=== PATIENT | male | born 1945 | race Caucasian/White ===

== ENCOUNTER → 2022-09-23 | Outpatient (CLI) | payer OTHER, SELFPAY ==
[2022-09-23 16:48] LABS: Absolute Lymphocyte Count 1.85 X10^3/uL (0.83-4.51); Absolute Neutrophil Count 3.7 X10^3/uL (2.0-7.7); Basophil# 0.05 X10^3/uL; Basophil% 0.8 % (0-1); Eosinophil# 0.23 X10^3/uL; Eosinophils% 3.6 % (0-5); Hematocrit 37.8 % (40-54); Hemoglobin 11.3 g/dL (13.0-16.5); Lymphocyte # 1.85 X10^3/ul (0.83-4.51); Mean Corp Hgb Conc 29.9 g/dL (32-36); Mean Corpuscular Hgb 27.5 pg (27.0-32.0); Mean Platelet Vol. 10.1 fl (6.2-12.0); Monocyte# 0.55 X10^3/uL; Monocyte% 8.6 % (0-10); NRBC Flagged by Analyzer 0 % (0-5); Neutrophil # 3.69 X10^3/uL (2.7-7.7); Neutrophil % 57.7 % (47-70); Platelet Count 171 K/mm3 (150-450); RBC Distribution Width SD 56.3 fl (35.1-43.9); Red Blood Count 4.11 M/mm3 (4.6-6.2); White Blood Count 6.4 K/mm3 (4.4-11.0)
[2022-09-23 16:57] LABS: International Normalized Ratio 1.2; Prothrombin Time (Protime)PT. 14.8 SECONDS (11.7-14.9)
[2022-09-23 17:47] LABS: HIV - WCH Non-Reactive (Nonreactive)
[2022-09-23 17:51] LABS: Erythrocyte Sedimentation Rate 21 mm/hr (0-20)
[2022-09-23 17:58] LABS: ALB/GLOB Ratio 0.7 RATIO (0.9-2.4); AST(SGOT) 54 U/L (15-37); Alanine Aminotransfer ALT/SGPT 74 U/L (16-61); Albumin, Serum 3.6 g/dL (3.2-5.0); Alkaline Phosphatase 346 U/L (45-117); Anion Gap 7 (5-15); BUN 50 mg/dL (7-18); BUN/Creat Ratio 43.5 RATIO (10-20); CRP < 2.90 mg/L (0.0-3.0); Calcium,Total 9.6 mg/dL (8.5-10.1); Chloride 99 mmol/L (98-107); Creatinine, Serum 1.15 mg/dL (0.70-1.30); EST Glomerular Filtration Rate 66 mL/min (>60); Est Glom Filt Rate - Afr Amer 79 mL/min (>60); Ferritin 52 ng/mL (26-388); Globulin 5.3 g/dL (2.2-4.2); Glucose 101 mg/dL (74-106); LDH 177 U/L (87-241); Potassium 3.8 mmol/L (3.5-5.1); Protein, Total 8.9 g/dL (6.4-8.2); Sodium Level 138 mmol/L (136-145)
[2022-09-23 20:30] LABS: Hemoglobin A1c 5.9 % (3.8-5.6)
[2022-09-25 16:09] LABS: Anti-Centromere B Ab <0.2 AI (0.0-0.9); Anti-Chromatin <0.2 AI (0.0-0.9); Anti-Jo <0.2 AI (0.0-0.9); Anti-Mitochondrial AB <20.0 Units (0.0-20.0); Anti-Scleroderma-70 AB <0.2 AI (0.0-0.9); Anti-dsDNA Ab 1 IU/mL (0-9); RNP Ab 0.2 AI (0.0-0.9); SJOGREN'S Anti-SS-A test < 0.2 AI (0.0-0.9); SJOGREN'S Anti-SS-B test < 0.2 AI (0.0-0.9); Smith Ab <0.2 AI (0.0-0.9)
[2022-09-26 08:12] LABS: AFP, Tumor Marker 1.9 ng/mL (0.0-8.4); Angiotensin Convert Enzyme 68 U/L (14-82); Anti-Smooth Muscle ABS 17 Units (0-19); Ceruloplasmin 42.1 mg/dL (16.0-31.0); Copper, Serum or Plasma 181 ug/dL (69-132); Cytoplasmic Ab (C-ANCA) <1:20 titer (Neg:<1:20); HEPATITIS B SURFACE AG Negative (Negative); Haptoglobin 173 mg/dL (34-355); Hep C Antibodies Non Reactive (Non Reactive); Hepatitis A IgM Antibody Negative (Negative); Hepatitis B Core AB IgM Negative (Negative); Perinuclear Ab (P-ANCA) <1:20 titer (Neg:<1:20)
== END | disposition home or self-care (01) ==
PROVIDERS: Referring Provider Internal Medicine Gastroenterology; Visit Provider Internal Medicine Gastroenterology
DX: K74.60 Unspecified cirrhosis of liver (principal); R18.8 Other ascites
CPT/HCPCS: 36415; 80053; 80074; 82105; 82140; 82164; 82390; 82525; 82728; 83010; 83036; 83516; 83615; 85025; 85610; 85652; 86140; 86225; 86235; 86256; 86703

== ENCOUNTER → 2022-09-30 | Outpatient (CLI) | payer OTHER, SELFPAY ==
--- NOTE | 2022-09-30 12:04 | CT_ITS ---
EXAM: CT ABDOMEN AND PELVIS WITHOUT AND WITH INTRAVENOUS CONTRAST CLINICAL INDICATION: Triple phase liver. Cirrhosis. Alcohol abuse. TECHNIQUE: Helically acquired images were obtained of the abdomen and pelvis without and with intravenous contrast. This CT exam was performed using one or more of the following dose reduction techniques: automated exposure control, adjustment of the mA and/or kV according to patient size, and/or use of iterative reconstruction technique. CONTRAST: IV 100mL Isovue-300 RADIATION DOSE: CTDIvol = 10.84 mGy, DLP = 1170.83 mGy-cm COMPARISON: No relevant prior studies available. FINDINGS: LOWER THORAX: Mild left posterior pleural fluid. Small hiatal hernia. Lung bases are clear. No cardiomegaly. No significant pericardial effusion. ABDOMEN: LIVER: Hepatomegaly measuring 20.3 cm long. GALLBLADDER AND BILE DUCTS: Unremarkable. No calcified gallstones. No gallbladder distention or wall edema. No intra- or extrahepatic biliary ductal dilation. PANCREAS: Unremarkable. No focal cystic or solid mass. SPLEEN: Unremarkable. Normal size without focal cystic or solid mass. ADRENALS: Unremarkable. No nodules. KIDNEYS AND URETERS: Unremarkable. Normal renal size and position. No hydronephrosis. STOMACH AND BOWEL: Unremarkable. No stomach or bowel distention. No focal inflammatory change. PELVIS: APPENDIX: Normal. BLADDER: Unremarkable. REPRODUCTIVE: Unremarkable as visualized. No mass. ABDOMEN and PELVIS: INTRAPERITONEAL SPACE: Mild ascites in the upper paracolic gutters and overlying the liver and spleen. No free air. BONES/JOINTS: Moderate pronounced disc space height narrowing at L4-L5 and L5-S1 disc space levels with degenerative vacuum phenomenon. No lytic or blastic lesions. SOFT TISSUES: Unremarkable. No discrete abdominal or pelvic wall hernia. VASCULATURE: Prominent calcified plaque at the origin of the superior mesenteric artery making it difficult to assess the presence or absence of stenosis. No significant stenosis of the celiac artery origin despite the presence of calcified plaque. Moderate calcified plaques along the infrarenal abdominal aorta down to the iliac arteries. Abdominal aorta is non-dilated. Normal contrast enhancement of the main portal vein and branches. No suspicious portal venous hypertension. No enhancing varices in the nessa hepatis, stomach and distal esophagus. LYMPH NODES: Unremarkable. No enlarged lymph nodes. CT/CT Abd/Pelvis W/WO Contrast IMPRESSION: 1. Mild hepatomegaly and mild ascites in the upper paracolic gutters and overlying the liver surface. 2. No CT evidence of pulmonary venous hypertension or varices around the nessa hepatis, stomach and esophagus. 3. Mild left posterior pleural fluid. 4. No acute abnormality in the abdomen and pelvis. Electronically Signed: Danny Bob MD at 15:45 EDT ,
== END | disposition home or self-care (01) ==
PROVIDERS: Referring Provider Internal Medicine Gastroenterology; Visit Provider Internal Medicine Gastroenterology
DX: K74.60 Unspecified cirrhosis of liver (principal); R18.8 Other ascites
CPT/HCPCS: 74178; Q9967

== ENCOUNTER → 2023-01-14 | Outpatient (CLI) | payer OTHER, SELFPAY ==
--- NOTE | 2023-01-14 09:27 | US_ITS ---
STUDY: ABDOMINAL ULTRASOUND -4 quadrants. REASON FOR VISIT: Male, 77 years old ASCITES TECHNIQUE: Ultrasound evaluation of the 4 quadrants was performed with real-time and static irene-scale imaging. TECHNICAL QUALITY: Adequate. COMPARISON: None. FINDINGS: The 4 quadrants was examined with ultrasound. No significant amount of ascites is seen. US/Abdomen Limited IMPRESSION: No significant amount of ascites is seen. The paracentesis was not performed. Electronically Signed: Brian Bain MD at 15:44 EDT ,
== END | disposition home or self-care (01) ==
PROVIDERS: Referring Provider Internal Medicine Gastroenterology; Visit Provider Internal Medicine Gastroenterology
DX: R18.8 Other ascites (principal)
CPT/HCPCS: 76705; A4216

== ENCOUNTER → 2023-08-12 | Outpatient (CLI) | payer OTHER, SELFPAY ==
[2023-08-12 15:24] LABS: Absolute Lymphocyte Count 1.55 X10^3/uL (0.83-4.51); Absolute Neutrophil Count 3.2 X10^3/uL (2.0-7.7); Basophil# 0.06 X10^3/uL; Eosinophil# 0.37 X10^3/uL; Eosinophils% 6.4 % (0-5); Hematocrit 41.4 % (40-54); Hemoglobin 13.4 g/dL (13.0-16.5); Lymphocyte # 1.55 X10^3/ul (0.83-4.51); Lymphocyte % 26.9 % (19-41); Mean Corp Hgb Conc 32.4 g/dL (32-36); Mean Corpuscular Hgb 31.1 pg (27.0-32.0); Mean Corpuscular Volume 96.1 fL (80-94); Mean Platelet Vol. 10.2 fl (6.2-12.0); Monocyte# 0.55 X10^3/uL; Monocyte% 9.5 % (0-10); NRBC Flagged by Analyzer 0 % (0-5); Neutrophil # 3.22 X10^3/uL (2.7-7.7); Platelet Count 125 K/mm3 (150-450); RBC Distribution Width CV 14.4 % (11.6-14.6); RBC Distribution Width SD 50.5 fl (35.1-43.9); Red Blood Count 4.31 M/mm3 (4.6-6.2); White Blood Count 5.8 K/mm3 (4.4-11.0)
[2023-08-12 15:41] LABS: International Normalized Ratio 1.2; Prothrombin Time (Protime)PT. 15.3 SECONDS (11.7-14.9)
[2023-08-12 16:06] LABS: ALB/GLOB Ratio 0.8 RATIO (0.9-2.4); AST(SGOT) 43 U/L (15-37); Alanine Aminotransfer ALT/SGPT 54 U/L (16-61); Albumin, Serum 3.6 g/dL (3.2-5.0); Alkaline Phosphatase 237 U/L (45-117); Anion Gap 3 (5-15); BUN 37 mg/dL (7-18); BUN/Creat Ratio 30.1 RATIO (10-20); Calcium,Total 9.1 mg/dL (8.5-10.1); Chloride 99 mmol/L (98-107); Cholesterol 104 mg/dL (200); Creatinine, Serum 1.23 mg/dL (0.70-1.30); EST Glomerular Filtration Rate 61 mL/min (>60); Est Glom Filt Rate - Afr Amer 73 mL/min (>60); Ferritin 144 ng/mL (26-388); Globulin 4.6 g/dL (2.2-4.2); Glucose 89 mg/dL (74-106); High Density Lipoprotein 56 mg/dL; Iron 60 ug/dL (65-175); Iron Binding Capacity,Total 398 ug/dL (250-450); PERCENT IRON SATURATION 15.1 % (15.0-55.0); Protein, Total 8.2 g/dL (6.4-8.2); Sodium Level 134 mmol/L (136-145); Triglycerides 88 mg/dL; Very Low Density Lipoprotein 18 mg/dL (5-40)
[2023-08-12 16:15] LABS: Hemoglobin A1c 5.9 % (3.8-5.6)
[2023-08-14 04:07] LABS: AFP, Tumor Marker 1.9 ng/mL (0.0-8.4)
== END | disposition home or self-care (01) ==
LOC: LAB 14:36
PROVIDERS: Referring Provider Internal Medicine; Visit Provider Internal Medicine
DX: K74.60 Unspecified cirrhosis of liver (principal); R18.8 Other ascites
CPT/HCPCS: 36415; 80053; 80061; 82105; 82728; 83036; 83540; 83550; 85025; 85610; 86140

== ENCOUNTER 2023-09-08 12:40 | Day surgery (SDC) | payer OTHER, SELFPAY ==
[2023-09-08] VITALS (8 sets, daily range): BP systolic 88–139; BP diastolic 58–94; PULSE 71–82; RESP 14–16; TEMP 36.1–36.9; O2SAT 94–100; BMI 23.3
--- NOTE | 2023-09-08 | COLBX_PTH ---
PATIENT: CJ MOSQUERA LOC: EN U#:[id number] AGE/SX: 78/M ROOM: RE09/08/[address]: Dr. Kavon Madison DO : 1945 BED: DIS: 09/08/2023 SPEC #: [id number] RECD: 09/08/23 16:06 STATUS: BHASKAR AMIRA #: [id number] SULEIMAN: 09/08/23 00:[address]: Kavon Madison DEPT: SURGICAL PATHOLOGY RECD BY: Shweta Jeffrey ENTERED: 09/09/23 07:39 SP TYPE: COLON BX OTHR DR: [facility] Tissues: A - Gastric mucous membrane B - Sigmoid colon biopsy Procedures: Surgery Specimen Level IV HEADER OPERATION: Colonoscopy, EGD, biopsy PRE-OP DIAGNOSIS: Cirrhosis of liver with ascites TISSUE SUBMITTED: A- Gastric body biopsy, B- Sigmoid colon polyp biopsy MICROSCOPIC DIAGNOSIS A. Gastric body, biopsy: Mild gastritis. See microscopic description and comment. B. Sigmoid colon polyp, biopsy: Tubular adenoma. /mr 09/10/23 COMMENT A. The results of immunohistochemistry for Helicobacter pylori will be reported separately ([id number]). MICROSCOPIC DESCRIPTION Slides are reviewed. A. The specimen shows fragments of gastric mucosa with chronic inflammatory cell infiltrates in the lamina propria consisting of lymphocytes and plasma cells, consistent with mild chronic gastritis. GROSS DESCRIPTION A. Received in fixative is one container labeled with the patient's name and designated Gastric body biopsy. The specimen consists of two irregular fragments of light lutz soft tissue that in aggregate measure 0.6 x 0.5 x 0.2 cm. The specimen is totally submitted in one cassette. B. Received in fixative is one container labeled with the patient's name and designated Sigmoid colon polyp biopsy. The specimen consists of one irregular fragment of light lutz soft tissue that measures 0.5 x 0.5 x 0.2 cm. The specimen is totally submitted in one cassette. mr 09/09/23 TC:1 CPT:17514t6
--- NOTE | 2023-09-08 12:30 | IMM_PTH ---
PATIENT: CJ MOSQUERA LOC: EN U#:[id number] AGE/SX: 78/M ROOM: RE09/08/[address]: Dr. Kavon Madison DO : 1945 BED: DIS: 09/08/2023 SPEC #: [id number] RECD: 09/09/23 08:29 STATUS: BHASKAR REKole #: [id number] SULEIMAN: 09/08/23 12:[address]: Kavon Madison DEPT: IMMUNOHISTOCHEMISTRY RECD BY: Anshul Liu ENTERED: 09/09/23 08:33 SP TYPE: IMMUNO OTHR DR: [facility] Tissues: A - Gastric mucous membrane Procedures: H Pylori (initial) PHYSICIAN & INSTITUTION [place] [address] SPECIMEN INFORMATION: Tissue Source: A- Gastric body biopsy Clinical Info: Cirrohiss of liver with ascites Specimen Number: [id number] CPT code: 65163 METHODOLOGY: Deparaffinized sections of prefer/formalin-fixed tissue or PAP/DQ stained slides are incubated with monoclonal/polyclonal antibodies/oligonucleotide probes. Localization is made via biotin free immunoperoxidase method. Appropriate controls are performed and reacted as expected. Results on target cell population are indicated in the following table: RESULTS: ANTIBODY / CLONE RESULT Block A H Pylori (polyclonal) negative These tests were developed and their performance characteristics determined by [facility]. They may not have been cleared or approved by the U.S. Food and Drug Administration. The FDA has determined that such clearance or approval is not necessary. The above immunohistochemical/dualISH markers are ordered and reviewed by the Pathologist. INTERPRETATION: A. Gastric body, biopsy: Negative for Helicobacter pylori organisms. PRERNA/ 09/10/23
--- NOTE | 2023-09-08 13:17 | HP.PCM_ITS ---
History and Physical Date of Admission: 09/08/23 CJ MOSQUERA, is a 77 M who presents to the office today for follow up. [facility] with paracentesis (negative for malignancy) to address ascites and diverticulitis; history of dysphagia which neurology managed and is improved. History of renal cancer 2021; declined nephrectomy and discussed oncology options. [facility] hospitalization 04.26.22-05.07.22 where he was treated for alcohol dependence, alcoholic hepatic cirrhosis, iron deficiency, esophagitis, chronic gastric and duodenal ulcer, pneumonia, sepsis, hypovolemic shock, CKD Stage III, renal cancer, heart failure, long-term use of ATB. US RUQ and elastography 05.01.22 gallbladder moderately distended with diffuse wall thickening and mild pericholecystic fluid with gallbladder sludge and small polyps; liver mildly coarsened echotexture with mildly increased echogenicity without mass stiffness 1.59m/s (normal); trace abdominal ascites (s/p paracentesis); main portal vein mildly dilated 14mm, patent with antegrade flow. [facility] hospitalization .10.24-05.12.22 for mental status changes and treated for aspiration pneumonia, liver disease, orthostatic hypotension. Discharged to SNF and left AMA. Multiple ED presentations following this hospitalization and return to home. *BGI established 09.23.22 Cj reports that he is not having any GI difficulty or symptoms requiring attention today. He does use MiraLAX PRN to promote BM and with this he has a BM each day. Reports CT scan recently at [facility]; records currently unavailable. Biochemical CBC (hgb 11.3), coagulation, CMP, ferritin, LDH, HIV, hepatitis, ANANTH, AFP, AMA, ASM, STEPHANY comp, ANCA, haptoglobin without pertinent abnormality. CT abd/pel triple phase 09.30.22 hepatomegaly 20.3cm with mild abdominal ascites; large calcified plaque of SMA; mild left posterior pleural fluid. Contact 10.10.22 with [facility] recommending paracentesis and vascular referral; will need to be authorized through insurance. OV 01.30.23 feels he is doing well; paracentesis not completed as not enough ascites to safely perform. Has been limiting water intake to help manage ascites. Denies confusion/brain fog, balance difficult, sleep/wake cycle, edema difficulties. Does nap r/t immune therapy. MELD ESR/CRP Ammonia AST-ALT-AP 09.23.22 10 21/WNL 35 [id number] A1c H5.9, ceruloplasmin H42, copper H181 08.12.23 15 [id number] OV 12.11.23- Pt doing well since last visit. Denies any abdominal pain or bloating. Is on a fluid restriction diet. Takes Torsemide. Has not had any swelling. BM are normal. Goes once a day. Denies any other dizziness, confusion/ brain fog. OV 4.16.24- Pt stable since last visit. Has some abdominal bloating with possible fluid retention. No pain. No swelling in legs. BM are 1-2 times a day. No constipation or diarrhea. ROS Const Constitutional: Positive for fatigue and weight change ENT ENT: No difficulty swallowing Gastro GI: Positive for bloating; No abdominal pain, belching, change in bowel habits, change in stool character, coffee ground emesis, constipation, cramping, diarrhea, heartburn, difficulty swallowing, feeling full early, excessive flatus, incontinent of stools, Vomiting blood/hematemesis, Blood in stool, loose stools, Black,tarry stools, nausea/dyspepsia, pain with swallowing, vomiting or other Musc Musculoskeletal: No joint pain Skin Skin: No yellowing of the eye or itchy eyes Psych Psychiatric: No anxiety and No depression Endo Endocrine: Positive for fatigue and weight change Aller/Imm Allergy/Immunologic: No itchy eyes Miguel/Lymp Hematologic/Lymphatic: Positive for easy bleeding and easy bruising Quality Reporting Tobacco Screening ([facility] [address]) Smoking Status: Former smoker Assessment and Plan Assessment and Plan (1) Cirrhosis of liver with ascites: Status: Chronic Qualifiers: Hepatic cirrhosis type: unspecified hepatic cirrhosis Qualified Code(s): K74.60 - Unspecified cirrhosis of liver; R18.8 - Other ascites Plan: 77-year-old gentleman with possible cirrhosis secondary to alcohol versus cardiac cirrhosis status post BiV AICD due to congestive heart failure. He had AICD for about 2 3 years ago probably in 2020. History of ascites status post large-volume diuresis with IV loop diuretics and he was admitted in [facility] in April. Leg swelling and ascites controlled on torsemide 10 mg eplerenone. [facility] had [facility] in October 2022 Echo from October 2022 reviewed and shows EF 35 to 40%, RV systolic function reduced with RVSP 45 mmHg moderately increased pulmonary hypertension. Moderate TR. Mild to moderate MR. RAP 15 mmHg. As per , he had repeat echo in January 2023 which shows improved 55 to 60% but we do not have the copy. Try to calling the sales center associate office and. Next 1 is a schedule in October 2023. Liver ultrasound does not show significant ascites therefore no paracentesis was done. On exam clinically mild ascites and mild pedal edema controlled on diuretics. Patient does not have confusion disorientation or increased forgetfulness. During previous visit, lactulose rifaximin and nadolol was prescribed but needs prior authorization or filled by [facility] therefore we will send it there. Patient had CT abdomen pelvis triple phase which did not show any liver mass but mild abdominal ascites, large calcified plaque of the SMA. On ultrasound there was not enough fluid seen for safe paracentesis therefore procedure was not done. Patient had paracentesis in the past when he had ascites and at that time cytology was negative for malignancy. patient not taking PPI as he does not have any gastritis symptoms. Comment: Patient also has right-sided kidney cancer which is being managed by oncology Dr. Jenkins in [place]. Patient is on Keytruda IV infusion every 3 weeks. He also goes abdominal scanning. Record requested from Dr. Jenkins's office. Patient verbally said that was told that his tumor size decreased from 4 cm to 2.5 cm and again 3 cm. Follow-up in 3 months. Repeat labs before next visit ordered Orders: Orders Prothrombin Time w/INR 3 Months K74.60 - Unspecified cirrhosis of liver, M81.0 - Age-related osteoporosis without current pathological fracture, R18.8 - Other ascites Hemoglobin A1c 3 Months K74.60 - Unspecified cirrhosis of liver, M81.0 - Age- related osteoporosis without current pathological fracture, R18.8 - Other ascites CBC W/Diff, Automated 3 Months K74.60 - Unspecified cirrhosis of liver, M81.0 - Age-related osteoporosis without current pathological fracture, R18.8 - Other ascites CRP 3 Months K74.60 - Unspecified cirrhosis of liver, M81.0 - Age-related osteoporosis without current pathological fracture, R18.8 - Other ascites Comprehensive Metabolic Profil 3 Months K74.60 - Unspecified cirrhosis of liver, M81.0 - Age-related osteoporosis without current pathological fracture, R18.8 - Other ascites ABD Limited w/ Elastography 3 Months K74.60 - Unspecified cirrhosis of liver, M81.0 - Age-related osteoporosis without current pathological fracture, R18.8 - Other ascites Vitamin D,25 Hydroxy 3 Months K74.60 - Unspecified cirrhosis of liver, M81.0 - Age-related osteoporosis without current pathological fracture, R18.8 - Other ascites Medications: New lactulose Hold if more than 2 bowel movements per day 10 grams (15 mL) PO TID 90 days 4,050 mL 2RF Refilled rifaximin (Xifaxan) 550 mg PO BID 30 days 60 tabs 5RF nadolol Hold for heart less than 50 or systolic blood pressure less than 90 mmHg. 10 mg (1/2 x 20 mg) PO DAILY 1 month 30 tabs 5RF Discontinued lactulose Hold it if more than 2-3 soft to liquid bowel movements. Discontinued Reason: Duplicate Order 20 grams PO TID 30 days PRN 15 ea 2RF encephalopathy Coding Level of Care Code Established Pt Off vis,est,level 4 Patient Type Established History Detailed Exam Detailed Medical Decision Making Moderate Complexity Diagnoses Cirrhosis of liver with ascites, unspecified hepatic cirrhosis type K74.60; R18.8 Hepatic cirrhosis type: unspecified hepatic cirrhosis I have examined the patient and the H&P has been reviewed. There are no clinical changes since date of exam.
[2023-09-08] MEDS: Lactated Ringers 1,000 ML 15 ML IV (13:45)
== END 2023-09-08 14:43 | disposition home or self-care (01) ==
LOC: EN 12:40 → AC 12:41
PROVIDERS: Visit Provider Internal Medicine Gastroenterology
PROC: 0DJD8ZZ Inspection of Lower Intestinal Tract, Via Natural or Artificial Opening Endoscopic (ICD-10-PCS; CPT 45378; principal; 2023-09-08 12:25)
DX: Z12.11 Encounter for screening for malignant neoplasm of colon (principal); K76.6 Portal hypertension; K70.31 Alcoholic cirrhosis of liver with ascites; K31.89 Other diseases of stomach and duodenum; K26.9 Duodenal ulcer, unspecified as acute or chronic, without hemorrhage or perforation; K29.70 Gastritis, unspecified, without bleeding; D12.5 Benign neoplasm of sigmoid colon; K57.30 Diverticulosis of large intestine without perforation or abscess without bleeding; Z79.82 Long term (current) use of aspirin; Z79.899 Other long term (current) drug therapy; I25.10 Atherosclerotic heart disease of native coronary artery without angina pectoris; E78.00 Pure hypercholesterolemia, unspecified; I10 Essential (primary) hypertension
CPT/HCPCS: 45380; 43239; 88305; 88342; J7120; J2405

== ENCOUNTER → 2023-11-07 | Outpatient (CLI) | payer OTHER, SELFPAY ==
--- NOTE | 2023-11-07 08:55 | US_ITS ---
STUDY: ABDOMINAL ULTRASOUND - RIGHT UPPER QUADRANT; ELASTOGRAPHY REASON FOR VISIT: Male, 78 years old. Cirrhosis. TECHNIQUE: Ultrasound evaluation of the right upper quadrant was performed with real-time and static irene-scale imaging. Point quantification shear wave elastography was performed ([employer]). TECHNICAL QUALITY: Adequate. COMPARISON: Comparison is made with prior study dated January 14, 2023. FINDINGS: Liver: The liver is enlarged and measures 20.7 cm. There is increased echogenicity consistent with fatty infiltration. The bile ducts are within normal limits. There is hepatic color flow. The direction of portal flow is hepatopetal. There is no demonstrated mass lesion. Median liver stiffness measured 16.5 kPa. Gallbladder: Normal distended gallbladder. The gallbladder wall measures 2.6 mm. There is a negative sonographic Knowles''s sign. There is minimal pericholecystic fluid. There are no gallstones. Sludge is seen within the gallbladder lumen. Findings suggestive of a small gallbladder polyp. Common Bile Duct (C.B.D.): The common bile duct measures 3.4 mm. Pancreas: There is normal echogenicity of the visualized pancreas. There is no demonstrated pancreatic mass or cyst. Right Kidney: Normal size of the right kidney. The right kidney measures 11.2 cm x 4.6 cm x 4.5 cm. Normal renal cortex. The right cortex measures 1.4 cm. 2 renal cysts are seen. The larger measures 4.1 cm x 3.3 cm x 2.9 cm. There is no right hydronephrosis. US/ABD Limited w/ Elastography IMPRESSION: 1. Liver stiffness measures 16.5 kPa compatible with F3-F4 (Moderate to severe liver fibrosis) Metavir score. Electronically Signed: Brian Bain MD at 14:44 EDT ,
== END | disposition home or self-care (01) ==
LOC: US 08:55
PROVIDERS: Referring Provider Internal Medicine; Visit Provider Internal Medicine
DX: K74.60 Unspecified cirrhosis of liver (principal); R18.8 Other ascites; M81.0 Age-related osteoporosis without current pathological fracture
CPT/HCPCS: 76705; 76981